=== PATIENT | female | born 1935 ===

== ENCOUNTER → 2019-08-03 | Outpatient (CLI) | payer MEDICARE, OTHER ==
[2019-08-03 13:58] LABS: Alanine Aminotransfer (ALT/SGP 23 U/L (12-78); Albumin, Blood 3.9 g/dL (3.4-5.0); Albumin/Globulin Ratio 1.1 (0.8-1.8); Alk Phos 57 U/L (40-126); Anion Gap 5 mmol/L (6-16); Aspartate Aminotrans (AST/SGOT 34 U/L (12-37); Bilirubin, Total 0.3 mg/dL (0.1-1.0); Blood Urea Nitrogen 13 mg/dL (8-24); Bun/Creatinine Ratio 18.3 (12.0-20.0); CO2, Blood 29 mmol/L (21-32); Calcium, Blood 8.9 mg/dL (8.5-10.1); Chloride, Blood 106 mmol/L (98-108); Creatinine, Blood 0.71 mg/dL (0.40-1.00); Globulin, Blood 3.5 g/dL (2.2-4.0); Glomerular Filtration Rate >60 (60-); Glucose, Blood 81 mg/dL (70-99); Potassium, Blood 3.8 mmol/L (3.5-5.5); Sodium, Blood 140 mmol/L (136-145); Total Protein, Blood 7.4 g/dL (6.4-8.2)
== END | disposition home or self-care (01) ==
LOC: LAB SHORT 13:43 → LAB EV 13:43
PROVIDERS: Family Medicine
DX: L85.3 Xerosis cutis (principal)
CPT/HCPCS: 80053

== ENCOUNTER 2020-09-21 13:25 | Inpatient (IN) | payer MEDICARE, OTHER ==
[~2020-09-21] VITALS: Ht 152.4 cm; Wt 43.9 kg
[2020-09-21 14:28] LABS: BASOPHILS ABSOLUTE AUTO 0.03 K/mm3 (0.00-0.23); BASOPHILS PERCENT AUTO 1 % (0-2); EOSINOPHILS ABSOLUTE AUTO 0.05 K/mm3 (0.00-0.68); EOSINOPHILS PERCENT AUTO 1 % (0-6); Hematocrit 32.1 % (33.0-51.0); Hemoglobin 10.9 g/dL (11.5-16.0); IMMATURE GRAN ABSOLUTE AUTO 0.01 K/mm3 (0.00-0.10); IMMATURE GRAN PERCENT AUTO 0 % (0-1); LYMPHOCYTES PERCENT AUTO 42 % (21-46); MONOCYTES ABSOLUTE AUTO 0.45 K/mm3 (0.16-1.47); MONOCYTES PERCENT AUTO 9 % (4-13); Mean Corpuscular HGB 33.1 pg (26.0-34.0); Mean Corpuscular Volume 98 fL (80-100); Mean Platelet Volume 9.4 fL (9.1-12.4); NEUTROPHILS ABSOLUTE AUTO 2.52 K/mm3 (1.96-9.15); NEUTROPHILS PERCENT AUTO 48 % (41-73); Platelet Count 222 K/mm3 (150-400); RDW Coefficient Variation 12.9 % (11.7-14.2); RDW Standard Deviation 46.5 fL (35.1-46.3); Red Blood Cell Count 3.29 M/mm3 (3.80-5.20); White Blood Cell Count 5.26 K/mm3 (4.00-11.30)
[2020-09-21 14:54] LABS: Anion Gap 7 mmol/L (6-16); Blood Urea Nitrogen 13 mg/dL (8-24); Bun/Creatinine Ratio 24.4 (12.0-20.0); CO2, Blood 26 mmol/L (21-32); Calcium, Blood 9.1 mg/dL (8.5-10.1); Chloride, Blood 107 mmol/L (98-108); Creatinine, Blood 0.53 mg/dL (0.40-1.00); Glomerular Filtration Rate >60 (60-); Glucose, Blood 108 mg/dL (70-99); Potassium, Blood 3.5 mmol/L (3.5-5.5); Sodium, Blood 140 mmol/L (136-145)
[2020-09-21 16:47] LABS: Influenza A, PCR NEGATIVE (NEGATIVE); Influenza B, PCR NEGATIVE (NEGATIVE); Resp Syncytial Virus, PCR NEGATIVE (NEGATIVE); SARS-Cov-2 (COVID-19) PCR, MMC NEGATIVE (NEGATIVE)
[2020-09-21 17:10] LABS: Source, Urine Catheter
[2020-09-21 17:18] LABS: Appearance, Urine Cloudy (Clear); Bilirubin, Urine Neg (Neg); Blood, Urine Neg (Neg); Color, Urine Yellow (P-Yellow); Glucose Qualitative, Urine Neg (Neg); Ketones, Urine 2+ (Neg); Leukocyte Esterase, Urine Neg (Neg); Nitrite, Urine Neg (Neg); Protein, Urine Neg (Neg); Specific Gravity, Urine 1.015 (1.003-1.022); Urobilinogen, Urine NORM (Normal)
[2020-09-21 18:20] LABS: Bacteria Many /hpf; Red Blood Cells, Urine 0-2 /hpf (0-2); Squamous Epithelial Cells Rare /hpf (Few); White Blood Cells, Urine 0-2 /hpf (0-5)
--- NOTE | 2020-09-21 20:04 | NUR ---
PAS NOT ON AT THIS TIME DUE TO TRYING TO FIND CORRECT SIZE. KIRAN DAWKINS IS AWARE OF THIS AND IS GOING TO FOLLOW THRU. DR ROSAS STATES IF NOT AVAILABLE OK TO PLACE FOOT/SCD
[2020-09-21] MEDS ORDERED: SERT25 PO ×2 (21:14→21:16)
--- NOTE | 2020-09-22 02:51 | NUR ---
PAIN PT REPORTS PAIN BEING MORE OF A DISCOMFORT THAN PAINFUL, PRIMARILY LOCATED IN R KNEE. WILL CONTINUE TO MONITOR.
[2020-09-22 04:27] LABS: BASOPHILS ABSOLUTE AUTO 0.01 K/mm3 (0.00-0.23); BASOPHILS PERCENT AUTO 0 % (0-2); EOSINOPHILS PERCENT AUTO 0 % (0-6); Hematocrit 26.9 % (33.0-51.0); Hemoglobin 8.9 g/dL (11.5-16.0); IMMATURE GRAN ABSOLUTE AUTO 0.03 K/mm3 (0.00-0.10); IMMATURE GRAN PERCENT AUTO 0 % (0-1); LYMPHOCYTES ABSOLUTE AUTO 1.17 K/mm3 (0.84-5.20); LYMPHOCYTES PERCENT AUTO 16 % (21-46); MONOCYTES ABSOLUTE AUTO 0.53 K/mm3 (0.16-1.47); MONOCYTES PERCENT AUTO 7 % (4-13); Mean Corpuscular HGB 32.6 pg (26.0-34.0); Mean Corpuscular HGB Conc 33.1 g/dL (31.5-36.5); Mean Corpuscular Volume 99 fL (80-100); Mean Platelet Volume 8.7 fL (9.1-12.4); NEUTROPHILS ABSOLUTE AUTO 5.48 K/mm3 (1.96-9.15); NEUTROPHILS PERCENT AUTO 76 % (41-73); Platelet Count 169 K/mm3 (150-400); RDW Coefficient Variation 13.2 % (11.7-14.2); Red Blood Cell Count 2.73 M/mm3 (3.80-5.20); White Blood Cell Count 7.22 K/mm3 (4.00-11.30)
--- NOTE | 2020-09-22 19:38 | NUR ---
SHIFT SUMMARY PT IS POD#1. PAIN HAS BEEN MANAGED WITH NORCO AND TORADOL. PT CONTINUES TO HAVE INTERMITTENT SHARP PAINS IN HER R KNEE, TORADOL WAS ADDED TO PAIN MANAGEMENT THIS AFTERNOON. ICE AND ELEVATION HAS ALSO HELPED TO MANAGE PAIN. PT WAS ABLE TO WORK WITH THERAPY, AND IS A 1 PERSON ASSIST FOR TRANSFERS. PT TOLERATING PO. MONDRAGON CATH REMOVED THIS SHIFT, PT HAS BEEN ABLE TO VOID SINCE CATHETER WAS REMOVED. VSS. REPORT GIVEN TO VINCE DAWKINS.
[2020-09-23 04:56] LABS: BASOPHILS ABSOLUTE AUTO 0.02 K/mm3 (0.00-0.23); BASOPHILS PERCENT AUTO 0 % (0-2); EOSINOPHILS ABSOLUTE AUTO 0.06 K/mm3 (0.00-0.68); EOSINOPHILS PERCENT AUTO 1 % (0-6); Hematocrit 26.7 % (33.0-51.0); Hemoglobin 8.8 g/dL (11.5-16.0); IMMATURE GRAN ABSOLUTE AUTO 0.01 K/mm3 (0.00-0.10); IMMATURE GRAN PERCENT AUTO 0 % (0-1); LYMPHOCYTES ABSOLUTE AUTO 0.83 K/mm3 (0.84-5.20); LYMPHOCYTES PERCENT AUTO 17 % (21-46); MONOCYTES ABSOLUTE AUTO 0.51 K/mm3 (0.16-1.47); MONOCYTES PERCENT AUTO 10 % (4-13); Mean Corpuscular Volume 100 fL (80-100); Mean Platelet Volume 9.5 fL (9.1-12.4); NEUTROPHILS ABSOLUTE AUTO 3.58 K/mm3 (1.96-9.15); NEUTROPHILS PERCENT AUTO 71 % (41-73); Platelet Count 167 K/mm3 (150-400); RDW Coefficient Variation 13.4 % (11.7-14.2); RDW Standard Deviation 48.9 fL (35.1-46.3); Red Blood Cell Count 2.67 M/mm3 (3.80-5.20); White Blood Cell Count 5.01 K/mm3 (4.00-11.30)
[2020-09-23 05:15] LABS: Albumin, Blood 2.6 g/dL (3.4-5.0); Anion Gap 2 mmol/L (6-16); Blood Urea Nitrogen 11 mg/dL (8-24); Bun/Creatinine Ratio 18.9 (12.0-20.0); CO2, Blood 29 mmol/L (21-32); Chloride, Blood 109 mmol/L (98-108); Creatinine, Blood 0.58 mg/dL (0.40-1.00); Glomerular Filtration Rate >60 (60-); Glucose, Blood 91 mg/dL (70-99); Magnesium, Blood 2.2 mg/dL (1.6-2.4); Phosphorus, Blood 2.7 mg/dL (2.5-4.9); Potassium, Blood 3.8 mmol/L (3.5-5.5); Sodium, Blood 140 mmol/L (136-145)
--- NOTE | 2020-09-23 05:35 | NUR ---
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 NO ACUTE EVENTS THIS SHIFT. CALL LIGHT IN REACH, WILL CONTINUE TO MONITOR AND REPORT TO ONCOMING DAY RN.
[2020-09-23] MEDS ORDERED: HYDR1TAB94 PO (13:55)
[2020-09-23] MEDS ORDERED: XARELTO10 M1 PO (13:56)
--- NOTE | 2020-09-23 14:45 | NUR ---
DISCHARGE SUMMARY PATIENT ALERT AND ORIENTED THOUGHOUT SHIFT. SBA WITH WALKER TO BATHROOM. TOLERATING REGULAR DIET. PAIN CONTROLLED WITH PO PAIN MEDS. VOIDING WELL. DISCHARGE ORDERS OBTAINED. DISCHARGE EDUCATION PROVIDED ON WOUND CARE, PAIN RX, ACTIVITY LEVEL, AND FOLLOW UP WITH ORTHO, PCP, AND HOME HEALTH PHYSICAL THERAPY. IV DC'D WNL. PT TOLERATED WELL. PT LEFT UNIT VIW WHEELCHAIR AT 1430 FOR HOME WITH SPOUSE.
--- NOTE | 2020-09-23 15:40 | NUR ---
I met with Cj and her devoted , Paul. Paul took me outside the room to ask me for guidence. Apparently, a favorite grandson 2 days ago, and family is hesitant to tell Cj. I provided gentle compliance counsel to good effect. I offered several suggestions and bereavement compliance counsel. Cj was in process of d/c.
--- NOTE | 2020-09-23 15:59 | NUR ---
ADMIT: 09/21/20 DISCHARGE: 09/23/20 DX: Fall, Femur fracture CC: [email or web address] DAMIAN CALL: at home phone RESIDENCE: home with spouse CAREGIVER: Paul Solano, Spouse / Partner, DX: hypoglycemia, osteoporosis, anemia, see list DME: none CCM:none HOME HEALTH: none SUMMARY: Admit: 09/21/20 09/23/20- pt d/c home with . 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 Pt and did requested that a 4-wheeled walker and shower chair. Ordered these through [employer], to be delivered to their home. They report that there are only a few stairs to get into the home but pt doesn't feel they will be an issue. They would like the home phone to be called for DAMIAN follow up. Reviewed DAMIAN letter and they acknowledged understanding. PT came while the was there to work with them on a safety in the home. -elen
== END 2020-09-23 14:30 | disposition home or self-care (01) | DRG 482 ==
LOC: ER 13:25 → SURS 18:57
PROVIDERS: Emergency Medicine; Internal Medicine Gastroenterology; Orthopaedic Surgery; ADMIT Internal Medicine
PROC: 0QS806Z Reposition Right Femoral Shaft with Intramedullary Internal Fixation Device, Open Approach (ICD-10-PCS; principal; 2020-09-21 17:00)
DX: S72.321A Displaced transverse fracture of shaft of right femur, initial encounter for closed fracture (principal); Z20.822 Contact with and (suspected) exposure to COVID-19; M81.0 Age-related osteoporosis without current pathological fracture; F32.9 Major depressive disorder, single episode, unspecified; D64.9 Anemia, unspecified; R91.1 Solitary pulmonary nodule; R94.31 Abnormal electrocardiogram [ECG] [EKG]; Z79.899 Other long term (current) drug therapy; Z98.890 Other specified postprocedural states; W18.39XA Other fall on same level, initial encounter; Y92.002 Bathroom of unspecified non-institutional (private) residence as the place of occurrence of the external cause
CPT/HCPCS: 0241U; 27502; 36415; 51702; 71045; 71260; 72170; 73552; 80048; 80069; 81001; 83735; 85025; 87086; 93005; 93010; 96374-59; 96375-59; 96376-59; 97110; 97116; 97161; 97165; 97530; 97535; 99152; 99285-25; A9270; C1713; C1769; J0690; J1100; J1170; J1885; J2405; J2704; J3010; J3360; J7030; J7120; Q9967